=== PATIENT | male | born 1980 | race Caucasian/White ===

== ENCOUNTER 2021-01-15 17:06 | Emergency (ER) | payer MEDICAID ==
[~2021-01-15] VITALS: Ht 210.8 cm; Wt 90.7 kg
[2021-01-15 21:35] VITALS: BP 152/102
[2021-01-15] MEDS ORDERED: KETOROLAC TROMETH 60MG/2ML VIAL IM ONE (22:15)
[2021-01-15] MEDS ORDERED: HYDROcodone-ACET 10/325MG TAB PO ONE (22:15)
== END 2021-01-15 23:10 | disposition home or self-care (01) ==
LOC: ER 17:10
DX: R68.84 Jaw pain (principal); F17.200 Nicotine dependence, unspecified, uncomplicated; Z88.6 Allergy status to analgesic agent
CPT/HCPCS: 70110; 96372; 99283; J1885

== ENCOUNTER 2021-04-29 13:54 | Inpatient (IN) | payer MEDICAID ==
[~2021-04-29] VITALS: Ht 210.8 cm; Wt 92.1 kg
[2021-04-29] MEDS ORDERED: HYDROmorphone HCL 2 MG/ML VL IV ONE (16:15)
[2021-04-29] MEDS ORDERED: ONDANSETRON HCL 4 MG/2 ML VIAL IV ONE (16:15)
[2021-04-29 17:19] LABS: Basophils # (auto) 0 10 ^3/uL (0-0.2); Basophils % (auto) 0.6 % (0.0-2.0); Eosinophils # (auto) 0 10 ^3/uL (0-0.8); Eosinophils % (auto) 0.1 % (0.0-7.0); Hematocrit 43.2 % (41.0-53.0); Hemoglobin 14.6 g/dL (13.5-17.5); Lymphocytes # (auto) 0.9 10 ^3/uL (0.4-5.4); Lymphocytes % (auto) 14.6 % (10.0-50.0); Mean Corpuscular Hemoglobin 30.6 pg (28.0-32.0); Mean Corpuscular Hgb Conc. 33.8 g/dL (32.0-36.0); Mean Corpuscular Volume 90.8 fL (80.0-100.0); Monocytes # (auto) 1.1 10 ^3/uL (0-1.3); Monocytes % (auto) 18.6 % (0.0-12.0); Neutrophils # (auto) 3.9 10 ^3/uL (1.6-8.6); Neutrophils % (auto) 66.1 % (37.0-80.0); Nucleated Red Blood Cells % 0.1 %; Red Blood Cells 4.76 10^6/uL (4.5-5.90); Red Cell Distribution Width 14.9 % (11.8-14.3); White Blood Cell 5.8 10^3/uL (4.4-10.8)
[2021-04-29 17:30] LABS: Albumin 3.4 g/dL (3.4-5.0); BUN/Creatinine Ratio 8.3; Calcium 9.2 mg/dL (8.5-10.1); Magnesium 2.2 mg/dL (1.6-2.6)
[2021-04-29 17:31] LABS: Bilirubin, Total 1.3 mg/dL (0.2-1.0); Total Protein 7.5 g/dL (6.4-8.2)
[2021-04-29 17:36] LABS: INR 0.95 (0.9-1.15); Partial Thromboplastin Time 26.6 sec (23.6-33.0)
[2021-04-29] MEDS ORDERED: MORPHINE SULFATE INJECTION 2 MG/ML SYRG IV PRN ×2 (18:00)
[2021-04-29] MEDS ORDERED: ACETAMINOPHEN 325 MG TAB PO PRN (18:00)
[2021-04-29] MEDS ORDERED: LORazepam 0.5 MG TAB PO PRN (18:00)
[2021-04-29] MEDS ORDERED: ONDANSETRON HCL 4 MG/2 ML VIAL IV PRN (18:00)
[2021-04-29] MEDS ORDERED: DOCUSATE SOD 100 MG CAP PO PRN (18:00)
[2021-04-29] MEDS ORDERED: NITROGLYCERIN 0.4 MG SL TAB SL PRN (18:00)
[2021-04-29] MEDS ORDERED: diphenhdrAMINE HCL 25 MG CAP PO PRN (18:00)
[2021-04-29] MEDS ORDERED: ENOXAPARIN SOD 40 MG/0.4 ML SYRINGE SC SCH (18:28)
[2021-04-29] MEDS ORDERED: DEXTROSE (50%) 50ML SYRG IV PRN (18:45)
[2021-04-29] MEDS: SODIUM CHLORIDE 0.9% 1,000 ML IV SCH (18:56)
[2021-04-29 21:00] VITALS: BP 137/93
[2021-04-29 22:00] VITALS: BP 141/86
[2021-04-29] MEDS: ACCU-CHEK COMFORT CURVE STRIP VI SCH (22:00)
[2021-04-29] MEDS ORDERED: PREGABALIN CAPSULE 75 MG CAP PO SCH (22:00)
[2021-04-30] MEDS: InsuLIN REG 1unit/0.01ml Soln (100units/ml) SC SCH ×5 (00:38→22:47)
[2021-04-30 04:53] VITALS: BP 109/63
[2021-04-30] MEDS ORDERED: GABA-339 PO (05:15)
[2021-04-30] MEDS ORDERED: ETOD400T3 PO (05:23)
[2021-04-30] MEDS ORDERED: OMEP20TA PO (05:27)
[2021-04-30] MEDS ORDERED: HYDR-4833 PO (05:30)
[2021-04-30] MEDS: ACCU-CHEK COMFORT CURVE STRIP VI SCH ×4 (06:33→22:46)
[2021-04-30 08:00] VITALS: BP_SYST 119; BP_DIAS 73; BP_DIAS 76
[2021-04-30] MEDS: HYDROmorphone HCL 2 MG/ML VL IV PRN ×5 (09:47→22:31)
[2021-04-30] MEDS: THIAMINE HCL 100 MG TAB PO SCH (09:48)
[2021-04-30] MEDS: FOLIC ACID 1 MG TAB PO SCH (09:48)
[2021-04-30 09:51] LABS: Basophils # (auto) 0 10 ^3/uL (0-0.2); Basophils % (auto) 0.4 % (0.0-2.0); Eosinophils # (auto) 0 10 ^3/uL (0-0.8); Eosinophils % (auto) 0.6 % (0.0-7.0); Hematocrit 37.7 % (41.0-53.0); Hemoglobin 12.4 g/dL (13.5-17.5); Lymphocytes # (auto) 1.4 10 ^3/uL (0.4-5.4); Lymphocytes % (auto) 31.1 % (10.0-50.0); Mean Corpuscular Hemoglobin 30.3 pg (28.0-32.0); Mean Corpuscular Hgb Conc. 32.8 g/dL (32.0-36.0); Mean Corpuscular Volume 92.4 fL (80.0-100.0); Monocytes # (auto) 0.7 10 ^3/uL (0-1.3); Monocytes % (auto) 15.4 % (0.0-12.0); Neutrophils # (auto) 2.3 10 ^3/uL (1.6-8.6); Neutrophils % (auto) 52.5 % (37.0-80.0); Red Blood Cells 4.08 10^6/uL (4.5-5.90); Red Cell Distribution Width 14.9 % (11.8-14.3); White Blood Cell 4.4 10^3/uL (4.4-10.8)
[2021-04-30] MEDS: SODIUM CHLORIDE 0.9% 1,000 ML IV SCH (09:52)
[2021-04-30 11:34] LABS: Calcium 8.7 mg/dL (8.5-10.1); Potassium 3.9 mmol/L (3.5-5.1)
[2021-04-30 11:38] LABS: Albumin 2.8 g/dL (3.4-5.0); BUN/Creatinine Ratio 7.4
[2021-04-30 11:41] LABS: Bilirubin, Total 1.1 mg/dL (0.2-1.0); Total Protein 6.2 g/dL (6.4-8.2)
[2021-04-30 12:00] VITALS: BP 119/76
[2021-04-30] MEDS: ENOXAPARIN SOD 40 MG/0.4 ML SYRINGE SC SCH (12:11)
[2021-04-30] MEDS: PREGABALIN CAPSULE 75 MG CAP PO SCH ×2 (16:14→23:33)
[2021-04-30 16:17] VITALS: BP 113/78
[2021-04-30 22:00] VITALS: BP 119/76
[2021-05-01] VITALS (7 sets, daily range): BP systolic 111–125; BP diastolic 57–80
[2021-05-01] MEDS: SODIUM CHLORIDE 0.9% 1,000 ML IV SCH ×2 (03:20→20:00)
[2021-05-01] MEDS: InsuLIN REG 1unit/0.01ml Soln (100units/ml) SC SCH ×4 (06:45→22:00)
[2021-05-01] MEDS: ACCU-CHEK COMFORT CURVE STRIP VI SCH ×4 (06:45→22:00)
[2021-05-01] MEDS: PREGABALIN CAPSULE 75 MG CAP PO SCH ×3 (06:57→22:45)
[2021-05-01 07:42] LABS: Basophils # (auto) 0 10 ^3/uL (0-0.2); Basophils % (auto) 0.5 % (0.0-2.0); Eosinophils # (auto) 0 10 ^3/uL (0-0.8); Eosinophils % (auto) 1.1 % (0.0-7.0); Hematocrit 35.4 % (41.0-53.0); Hemoglobin 11.7 g/dL (13.5-17.5); Lymphocytes # (auto) 1.8 10 ^3/uL (0.4-5.4); Lymphocytes % (auto) 41.3 % (10.0-50.0); Mean Corpuscular Hgb Conc. 33.1 g/dL (32.0-36.0); Mean Corpuscular Volume 93.5 fL (80.0-100.0); Monocytes # (auto) 0.5 10 ^3/uL (0-1.3); Monocytes % (auto) 11.3 % (0.0-12.0); Neutrophils % (auto) 45.8 % (37.0-80.0); Nucleated Red Blood Cells % 0.1 %; Red Blood Cells 3.78 10^6/uL (4.5-5.90); Red Cell Distribution Width 14.5 % (11.8-14.3); White Blood Cell 4.4 10^3/uL (4.4-10.8)
[2021-05-01 07:50] LABS: Potassium 3.4 mmol/L (3.5-5.1)
[2021-05-01 08:12] LABS: BUN/Creatinine Ratio 9.4
[2021-05-01 08:13] LABS: Albumin 2.7 g/dL (3.4-5.0); Bilirubin, Total 0.5 mg/dL (0.2-1.0); Calcium 8.3 mg/dL (8.5-10.1)
[2021-05-01] MEDS: THIAMINE HCL 100 MG TAB PO SCH (09:44)
[2021-05-01] MEDS: ENOXAPARIN SOD 40 MG/0.4 ML SYRINGE SC SCH (09:44)
[2021-05-01] MEDS: FOLIC ACID 1 MG TAB PO SCH (09:44)
[2021-05-02 05:00] VITALS: BP 106/60
[2021-05-02] MEDS: PREGABALIN CAPSULE 75 MG CAP PO SCH ×3 (06:20→22:07)
[2021-05-02] MEDS: HYDROcodone-ACET 5/325MG TAB PO PRN ×4 (06:41→23:16)
[2021-05-02] MEDS: InsuLIN REG 1unit/0.01ml Soln (100units/ml) SC SCH ×4 (06:42→23:17)
[2021-05-02] MEDS: ACCU-CHEK COMFORT CURVE STRIP VI SCH ×3 (06:42→22:00)
[2021-05-02 09:00] VITALS: BP 116/71
[2021-05-02] MEDS: ENOXAPARIN SOD 40 MG/0.4 ML SYRINGE SC SCH (09:20)
[2021-05-02] MEDS: THIAMINE HCL 100 MG TAB PO SCH (09:25)
[2021-05-02] MEDS: FOLIC ACID 1 MG TAB PO SCH (09:25)
[2021-05-02] MEDS: SODIUM CHLORIDE 0.9% 1,000 ML IV SCH (12:40)
[2021-05-02 13:00] VITALS: BP 129/74
[2021-05-02 17:00] VITALS: BP 115/82
[2021-05-03 05:00] VITALS: BP 110/77
[2021-05-03] MEDS: SODIUM CHLORIDE 0.9% 1,000 ML IV SCH ×2 (05:20→21:25)
[2021-05-03] MEDS: ACCU-CHEK COMFORT CURVE STRIP VI SCH ×4 (06:03→21:26)
[2021-05-03] MEDS: PREGABALIN CAPSULE 75 MG CAP PO SCH ×3 (06:04→21:25)
[2021-05-03] MEDS: InsuLIN REG 1unit/0.01ml Soln (100units/ml) SC SCH ×4 (06:04→21:26)
[2021-05-03] MEDS: HYDROcodone-ACET 5/325MG TAB PO PRN ×4 (06:11→21:26)
[2021-05-03 09:00] VITALS: BP 122/80
[2021-05-03] MEDS: THIAMINE HCL 100 MG TAB PO SCH (10:43)
[2021-05-03] MEDS: FOLIC ACID 1 MG TAB PO SCH (10:43)
[2021-05-03] MEDS: ENOXAPARIN SOD 40 MG/0.4 ML SYRINGE SC SCH (10:44)
[2021-05-03 13:00] VITALS: BP 124/80
[2021-05-03 17:00] VITALS: BP 119/67
[2021-05-03 22:00] VITALS: BP 133/91
[2021-05-04 05:00] VITALS: BP 117/74
[2021-05-04] MEDS: ACCU-CHEK COMFORT CURVE STRIP VI SCH ×2 (05:38→11:30)
[2021-05-04] MEDS: InsuLIN REG 1unit/0.01ml Soln (100units/ml) SC SCH ×2 (05:38→11:30)
[2021-05-04 09:00] VITALS: BP 126/81
[2021-05-04] MEDS: ENOXAPARIN SOD 40 MG/0.4 ML SYRINGE SC SCH (09:53)
[2021-05-04] MEDS: FOLIC ACID 1 MG TAB PO SCH (09:56)
[2021-05-04] MEDS: THIAMINE HCL 100 MG TAB PO SCH (09:56)
[2021-05-04] MEDS: HYDROcodone-ACET 5/325MG TAB PO PRN ×2 (09:56→14:52)
[2021-05-04 13:00] VITALS: BP 122/75
[2021-05-04] MEDS: PREGABALIN CAPSULE 75 MG CAP PO SCH (14:00)
[2021-05-04] MEDS: SODIUM CHLORIDE 0.9% 1,000 ML IV SCH (14:53)
[2021-05-04 17:00] VITALS: BP 123/83
== END 2021-05-04 17:00 | DRG 340 ==
LOC: ER 13:54 → EDUNIT# 13:54 → EDBD 13:54 → OVERFLOW 18:20 → WEST WING 20:30
PROVIDERS: ADMIT Family Medicine; ATTEND Family Medicine
DX: S72.111A Displaced fracture of greater trochanter of right femur, initial encounter for closed fracture (principal); F17.210 Nicotine dependence, cigarettes, uncomplicated; G89.29 Other chronic pain; K21.9 Gastro-esophageal reflux disease without esophagitis; R73.9 Hyperglycemia, unspecified; Z20.822 Contact with and (suspected) exposure to COVID-19; W01.0XXA Fall on same level from slipping, tripping and stumbling without subsequent striking against object, initial encounter; Z98.1 Arthrodesis status; Z88.1 Allergy status to other antibiotic agents; Z88.5 Allergy status to narcotic agent; Y93.89 Activity, other specified; Y92.89 Other specified places as the place of occurrence of the external cause; Y99.8 Other external cause status
CPT/HCPCS: 36415; 71045; 73502; 73700; 80053; 80320; 82962; 83036; 83735; 85025; 85610; 85730; 87426; 93005; 96372; 96374; 96375; 97110; 97116; 97163; 97530; G0378; J2405

== ENCOUNTER 2022-09-01 19:38 | Inpatient (IN) | payer MEDICAID ==
[~2022-09-01] VITALS: Ht 210.8 cm; Wt 91.5 kg
[~2022-09-01 19:38] MED LIST: ETOD400T3 PO; GABA-339 PO; HYDR-4833 PO; OMEP20TA PO
[2022-09-01] MEDS ORDERED: MORPHINE SULFATE 4 MG/ML SYR/VIAL IV ONE (20:15)
[2022-09-01] MEDS ORDERED: SODIUM CHLORIDE 0.9% 1,000 ML IVB ONE ×2 (20:15→23:00)
[2022-09-01] MEDS ORDERED: PROCHLORPERAZINE EDISYLATE 5 MG/ML 2ML VIAL IV ONE (20:15)
[2022-09-01] MEDS ORDERED: PANTOPRAZOLE 40 MG/10 ML VIAL INJ IV ONE ×2 (20:15→23:00)
[2022-09-01 21:20] LABS: Albumin 3.5 g/dL (3.4-5.0); Basophils # (auto) 0 10 ^3/uL (0-0.2); Basophils % (auto) 0.6 % (0.0-2.0); Calcium 9.4 mg/dL (8.5-10.1); Eosinophils # (auto) 0 10 ^3/uL (0-0.8); Eosinophils % (auto) 0.1 % (0.0-7.0); Hematocrit 47.7 % (41.0-53.0); Hemoglobin 16.4 g/dL (13.5-17.5); Lymphocytes # (auto) 1.9 10 ^3/uL (0.4-5.4); Lymphocytes % (auto) 21.9 % (10.0-50.0); Mean Corpuscular Hemoglobin 29.9 pg (28.0-32.0); Mean Corpuscular Hgb Conc. 34.3 g/dL (32.0-36.0); Mean Corpuscular Volume 87.2 fL (80.0-100.0); Monocytes # (auto) 1.1 10 ^3/uL (0-1.3); Monocytes % (auto) 12.4 % (0.0-12.0); Neutrophils # (auto) 5.5 10 ^3/uL (1.6-8.6); Nucleated Red Blood Cells % 0.6 %; Potassium 3.9 mmol/L (3.5-5.1); Red Blood Cells 5.46 10^6/uL (4.5-5.90); Red Cell Distribution Width 16.9 % (11.8-14.3); White Blood Cell 8.5 10^3/uL (4.4-10.8)
[2022-09-01 21:25] LABS: BUN/Creatinine Ratio 3.6 (10.0-20.0); Bilirubin, Total 0.6 mg/dL (0.2-1.0); Total Protein 8.3 g/dL (6.4-8.2)
[2022-09-01] MEDS ORDERED: MORPHINE SULFATE INJ 2 MG/ml SYRG IV PRN (23:00)
[2022-09-01] MEDS ORDERED: FOLIC ACID 1 MG TAB PO ONE (23:00)
[2022-09-01] MEDS ORDERED: chlordiazePOXIDE HCL 25 MG CAP PO ONE (23:00)
[2022-09-01] MEDS ORDERED: LORazepam 2MG/ML-1ML VIAL IV PRN (23:00)
[2022-09-01] MEDS ORDERED: MULTIPLE VITAMIN TAB PO ONE (23:00)
[2022-09-01] MEDS ORDERED: THIAMINE 100mg/ml INJ (200mg/2ml VIAL) IV ONE (23:00)
[2022-09-01] MEDS ORDERED: NITROGLYCERIN 0.4 MG SL TAB SL PRN (23:00)
[2022-09-01] MEDS: SODIUM CHLORIDE 0.9% 1,000 ML IV SCH (23:28)
[2022-09-02 05:21] VITALS: BP 127/68
[2022-09-02 08:36] VITALS: BP 117/78
[2022-09-02 08:37] LABS: Basophils # (auto) 0.1 10 ^3/uL (0-0.2); Eosinophils # (auto) 0 10 ^3/uL (0-0.8); Eosinophils % (auto) 0.4 % (0.0-7.0); Hematocrit 40.7 % (41.0-53.0); Hemoglobin 13.6 g/dL (13.5-17.5); Lymphocytes # (auto) 1.9 10 ^3/uL (0.4-5.4); Lymphocytes % (auto) 30.5 % (10.0-50.0); Mean Corpuscular Hemoglobin 29.7 pg (28.0-32.0); Mean Corpuscular Hgb Conc. 33.4 g/dL (32.0-36.0); Mean Corpuscular Volume 88.9 fL (80.0-100.0); Monocytes # (auto) 0.7 10 ^3/uL (0-1.3); Monocytes % (auto) 11.4 % (0.0-12.0); Neutrophils # (auto) 3.6 10 ^3/uL (1.6-8.6); Neutrophils % (auto) 56.7 % (37.0-80.0); Nucleated Red Blood Cells % 0.1 %; Red Blood Cells 4.58 10^6/uL (4.5-5.90); Red Cell Distribution Width 17.1 % (11.8-14.3); White Blood Cell 6.3 10^3/uL (4.4-10.8)
[2022-09-02 08:55] LABS: Albumin 2.7 g/dL (3.4-5.0); Calcium 8.6 mg/dL (8.5-10.1); Potassium 4.2 mmol/L (3.5-5.1)
[2022-09-02 08:59] LABS: BUN/Creatinine Ratio 5.2 (10.0-20.0); Bilirubin, Total 0.8 mg/dL (0.2-1.0)
[2022-09-02] MEDS ORDERED: PANTOPRAZOLE 40 MG/10 ML VIAL INJ IV SCH (10:00)
[2022-09-02] MEDS: MULTIPLE VITAMIN TAB PO SCH (10:38)
[2022-09-02] MEDS: ENOXAPARIN SOD 40 MG/0.4 ML SYRINGE SC SCH (10:38)
[2022-09-02] MEDS: FOLIC ACID 1 MG TAB PO SCH (10:38)
[2022-09-02] MEDS: THIAMINE HCL 100 MG TAB PO SCH (11:25)
[2022-09-02] MEDS: SODIUM CHLORIDE 0.9% 1,000 ML IV SCH ×3 (12:00→20:18)
[2022-09-02 12:50] VITALS: BP 121/79
[2022-09-02] MEDS ORDERED: GABAPENTIN 400 MG CAP PO SCH (14:00)
[2022-09-02 16:36] VITALS: BP 123/82
[2022-09-02 22:00] VITALS: BP 139/79
[2022-09-03 05:00] VITALS: BP 119/80
[2022-09-03] MEDS: SODIUM CHLORIDE 0.9% 1,000 ML IV SCH ×2 (07:18→18:21)
[2022-09-03 09:00] VITALS: BP 120/83
[2022-09-03] MEDS ORDERED: CLINIMIX PER PHARMACY 0 ML IV SCH (11:15)
[2022-09-03 12:16] LABS: BUN/Creatinine Ratio 6.8 (10.0-20.0); Calcium 8.7 mg/dL (8.5-10.1); Magnesium 2.3 mg/dL (1.6-2.6); Phosphorus 3.1 mg/dL (2.5-4.90); Potassium 3.8 mmol/L (3.5-5.1)
[2022-09-03] MEDS: MULTIPLE VITAMIN TAB PO SCH (12:33)
[2022-09-03] MEDS: THIAMINE HCL 100 MG TAB PO SCH (12:33)
[2022-09-03] MEDS: FOLIC ACID 1 MG TAB PO SCH (12:33)
[2022-09-03] MEDS: ENOXAPARIN SOD 40 MG/0.4 ML SYRINGE SC SCH (12:34)
[2022-09-03] MEDS: SUCRALFATE 1 GM/10 ML ORAL SUSP PO SCH ×3 (12:34→21:27)
[2022-09-03 13:00] VITALS: BP 124/82
[2022-09-03 20:00] VITALS: BP 121/85
[2022-09-03] MEDS ORDERED: DEXTROSE (50%) 50ML SYRG IV SCH (20:00)
[2022-09-03] MEDS: AMINO ACID INFUSION IN D10W 1,000 ML IV NR (20:10)
[2022-09-03] MEDS: PANTOPRAZOLE 40 MG/10 ML VIAL INJ IV SCH (21:27)
[2022-09-03 22:00] VITALS: BP 121/85
[2022-09-04] MEDS: ACCU-CHEK COMFORT CURVE STRIP VI SCH ×4 (00:21→17:53)
[2022-09-04 05:00] VITALS: BP 112/69
[2022-09-04] MEDS: InsuLIN REG 1unit/0.01ml Soln (100units/ml) SC SCH ×4 (05:35→17:53)
[2022-09-04 05:41] LABS: Calcium 8.9 mg/dL (8.5-10.1); Potassium 4.2 mmol/L (3.5-5.1)
[2022-09-04 05:44] LABS: Albumin 2.8 g/dL (3.4-5.0); Magnesium 2.3 mg/dL (1.6-2.6)
[2022-09-04 05:46] LABS: Bilirubin, Total 1.1 mg/dL (0.2-1.0); Phosphorus 3.7 mg/dL (2.5-4.90); Total Protein 6.4 g/dL (6.4-8.2)
[2022-09-04] MEDS: SUCRALFATE 1 GM/10 ML ORAL SUSP PO SCH ×4 (06:39→22:39)
[2022-09-04] MEDS: SODIUM CHLORIDE 0.9% 1,000 ML IV SCH (06:54)
[2022-09-04 09:00] VITALS: BP 130/89
[2022-09-04] MEDS: MULTIPLE VITAMIN TAB PO SCH (10:44)
[2022-09-04] MEDS: FOLIC ACID 1 MG TAB PO SCH (10:45)
[2022-09-04] MEDS: THIAMINE HCL 100 MG TAB PO SCH (10:45)
[2022-09-04] MEDS: PANTOPRAZOLE 40 MG/10 ML VIAL INJ IV SCH ×2 (10:46→22:39)
[2022-09-04] MEDS: ENOXAPARIN SOD 40 MG/0.4 ML SYRINGE SC SCH (10:46)
[2022-09-04] MEDS: D5W/SOD CHLO 0.9% 1,000 ML IV SCH ×3 (10:52→23:50)
[2022-09-04 12:55] LABS: Hepatitis C Antibody Negative (Negative)
[2022-09-04 13:00] VITALS: BP 107/77
[2022-09-04 17:00] VITALS: BP 115/88
[2022-09-04] MEDS: AMINO ACID INFUSION IN D10W 1,000 ML IV NR (20:25)
[2022-09-04 22:00] VITALS: BP 132/87
[2022-09-05] MEDS: D5W/SOD CHLO 0.9% 1,000 ML IV SCH ×3 (04:39→19:50)
[2022-09-05 05:00] VITALS: BP 124/77
[2022-09-05] MEDS: ACCU-CHEK COMFORT CURVE STRIP VI SCH ×5 (05:36→23:51)
[2022-09-05] MEDS: InsuLIN REG 1unit/0.01ml Soln (100units/ml) SC SCH ×5 (05:36→23:51)
[2022-09-05] MEDS: SUCRALFATE 1 GM/10 ML ORAL SUSP PO SCH ×4 (06:13→21:07)
[2022-09-05 06:30] LABS: Albumin 2.8 g/dL (3.4-5.0); Calcium 8.7 mg/dL (8.5-10.1); Potassium 3.4 mmol/L (3.5-5.1)
[2022-09-05 06:37] LABS: BUN/Creatinine Ratio 9.5 (10.0-20.0); Bilirubin, Total 1.1 mg/dL (0.2-1.0); Phosphorus 2.9 mg/dL (2.5-4.90); Total Protein 6.5 g/dL (6.4-8.2)
[2022-09-05 09:00] VITALS: BP 100/70
[2022-09-05] MEDS: PANTOPRAZOLE 40 MG/10 ML VIAL INJ IV SCH ×2 (10:50→21:07)
[2022-09-05] MEDS: ENOXAPARIN SOD 40 MG/0.4 ML SYRINGE SC SCH (10:50)
[2022-09-05] MEDS: THIAMINE HCL 100 MG TAB PO SCH (10:51)
[2022-09-05] MEDS: MULTIPLE VITAMIN TAB PO SCH (10:51)
[2022-09-05] MEDS: FOLIC ACID 1 MG TAB PO SCH (10:51)
[2022-09-05 13:00] VITALS: BP 121/83
[2022-09-05 17:00] VITALS: BP 114/80
[2022-09-05] MEDS: AMINO ACID INFUSION IN D10W 1,000 ML IV NR (21:08)
[2022-09-05 22:00] VITALS: BP 127/88
[2022-09-06] MEDS: D5W/SOD CHLO 0.9% 1,000 ML IV SCH ×4 (02:30→22:45)
[2022-09-06 05:00] VITALS: BP 119/72
[2022-09-06 05:52] LABS: Potassium 3.1 mmol/L (3.5-5.1)
[2022-09-06] MEDS: ACCU-CHEK COMFORT CURVE STRIP VI SCH ×3 (05:54→18:14)
[2022-09-06] MEDS: InsuLIN REG 1unit/0.01ml Soln (100units/ml) SC SCH ×3 (05:55→18:00)
[2022-09-06 05:58] LABS: Albumin 3.1 g/dL (3.4-5.0); BUN/Creatinine Ratio 9.5 (10.0-20.0); Bilirubin, Total 1.3 mg/dL (0.2-1.0); Calcium 9.2 mg/dL (8.5-10.1); Phosphorus 2.9 mg/dL (2.5-4.90)
[2022-09-06] MEDS: SUCRALFATE 1 GM/10 ML ORAL SUSP PO SCH ×4 (06:26→22:45)
[2022-09-06 08:00] VITALS: BP 125/55
[2022-09-06 09:00] VITALS: BP 125/55
[2022-09-06] MEDS: FOLIC ACID 1 MG TAB PO SCH (09:50)
[2022-09-06] MEDS: MULTIPLE VITAMIN TAB PO SCH (09:50)
[2022-09-06] MEDS: THIAMINE HCL 100 MG TAB PO SCH (09:50)
[2022-09-06] MEDS: PANTOPRAZOLE 40 MG/10 ML VIAL INJ IV SCH ×2 (09:50→22:45)
[2022-09-06] MEDS: ENOXAPARIN SOD 40 MG/0.4 ML SYRINGE SC SCH (09:51)
[2022-09-06] MEDS: POTASSIUM CHL 20 Meq TABLET PO SCH ×2 (12:14→17:04)
[2022-09-06 13:00] VITALS: BP 126/77
[2022-09-06 17:00] VITALS: BP 139/78
[2022-09-06] MEDS: AMINO ACID INFUSION IN D10W 1,000 ML IV NR (19:27)
[2022-09-06 22:00] VITALS: BP 138/86
[2022-09-07 05:00] VITALS: BP 127/74
[2022-09-07] MEDS: ACCU-CHEK COMFORT CURVE STRIP VI SCH ×2 (06:00)
[2022-09-07] MEDS: InsuLIN REG 1unit/0.01ml Soln (100units/ml) SC SCH ×2 (06:00)
[2022-09-07 06:21] LABS: Hematocrit 39.2 % (41.0-53.0); Hemoglobin 13.1 g/dL (13.5-17.5); Mean Corpuscular Hgb Conc. 33.3 g/dL (32.0-36.0); Mean Corpuscular Volume 90.2 fL (80.0-100.0); Red Blood Cells 4.35 10^6/uL (4.5-5.90); Red Cell Distribution Width 17.5 % (11.8-14.3); White Blood Cell 8.1 10^3/uL (4.4-10.8)
[2022-09-07 06:26] LABS: Basophils % (manual) 0 (0.0-2.0); Blast Cells 0; Metamyelocytes % 0; Myelocytes % 0; Promyelocytes % 0; Reactive Lymphocytes 0
[2022-09-07 06:34] LABS: Albumin 2.9 g/dL (3.4-5.0); Calcium 8.9 mg/dL (8.5-10.1); Magnesium 1.8 mg/dL (1.6-2.6); Potassium 3.5 mmol/L (3.5-5.1)
[2022-09-07] MEDS: SUCRALFATE 1 GM/10 ML ORAL SUSP PO SCH ×4 (06:36→22:51)
[2022-09-07 06:40] LABS: BUN/Creatinine Ratio 5.9 (10.0-20.0); Bilirubin, Total 1.1 mg/dL (0.2-1.0); Phosphorus 2.6 mg/dL (2.5-4.90); Total Protein 6.6 g/dL (6.4-8.2)
[2022-09-07 08:00] VITALS: BP 117/61
[2022-09-07 08:35] LABS: Band Neutrophils % (manual) 2; Eosinophils % (manual) 2 (0-7); Lymphocytes % (manual) 34 (10.0-50.0); Monocytes % (manual) 9 (0-12)
[2022-09-07 09:00] VITALS: BP 117/61
[2022-09-07] MEDS: PANTOPRAZOLE 40 MG/10 ML VIAL INJ IV SCH ×2 (10:14→22:51)
[2022-09-07] MEDS: ENOXAPARIN SOD 40 MG/0.4 ML SYRINGE SC SCH (10:14)
[2022-09-07] MEDS: FOLIC ACID 1 MG TAB PO SCH (10:14)
[2022-09-07] MEDS: MULTIPLE VITAMIN TAB PO SCH (10:14)
[2022-09-07] MEDS: THIAMINE HCL 100 MG TAB PO SCH (10:14)
[2022-09-07 13:00] VITALS: BP 133/83
[2022-09-07] MEDS: D5W/SOD CHLO 0.9% 1,000 ML IV SCH ×2 (14:56→18:18)
[2022-09-07 17:00] VITALS: BP 139/82
[2022-09-07] MEDS: ACETAMINOPHEN 325 MG TAB PO PRN (18:30)
[2022-09-07 22:00] VITALS: BP 132/78
[2022-09-08] MEDS: D5W/SOD CHLO 0.9% 1,000 ML IV SCH ×2 (03:00→07:50)
[2022-09-08 05:00] VITALS: BP 119/80
[2022-09-08] MEDS: SUCRALFATE 1 GM/10 ML ORAL SUSP PO SCH ×2 (06:15→11:24)
[2022-09-08 08:00] VITALS: BP 141/85
[2022-09-08 09:00] VITALS: BP 151/86
[2022-09-08] MEDS: PANTOPRAZOLE 40 MG/10 ML VIAL INJ IV SCH (09:19)
[2022-09-08] MEDS: FOLIC ACID 1 MG TAB PO SCH (09:20)
[2022-09-08] MEDS: THIAMINE HCL 100 MG TAB PO SCH (09:20)
[2022-09-08] MEDS: ENOXAPARIN SOD 40 MG/0.4 ML SYRINGE SC SCH (09:20)
[2022-09-08] MEDS: MULTIPLE VITAMIN TAB PO SCH (09:20)
[2022-09-08] MEDS: ACETAMINOPHEN 325 MG TAB PO PRN (09:21)
[2022-09-08] MEDS ORDERED: PANT40T PO (10:38)
[2022-09-08] MEDS ORDERED: MULT1TAB95 PO (10:38)
[2022-09-08] MEDS ORDERED: THIA100T5 PO (10:38)
[2022-09-08] MEDS ORDERED: FOLI1TAB6 PO (10:38)
[2022-09-08] MEDS ORDERED: SUCR1TAB PO (10:38)
[2022-09-08 11:11] VITALS: BP 141/85
[2022-09-08 11:15] VITALS: BP 141/85
== END 2022-09-08 12:05 | disposition home or self-care (01) | DRG 282 ==
LOC: ER 19:38 → TELE 22:56 → TELE-EAST 09-02 04:40
PROVIDERS: ADMIT Nurse Practitioner Family; ATTEND Family Medicine
DX: K85.20 Alcohol induced acute pancreatitis without necrosis or infection (principal); K80.00 Calculus of gallbladder with acute cholecystitis without obstruction; E87.1 Hypo-osmolality and hyponatremia; K26.9 Duodenal ulcer, unspecified as acute or chronic, without hemorrhage or perforation; F10.229 Alcohol dependence with intoxication, unspecified; F17.210 Nicotine dependence, cigarettes, uncomplicated; K21.00 Gastro-esophageal reflux disease with esophagitis, without bleeding; K29.80 Duodenitis without bleeding; R74.8 Abnormal levels of other serum enzymes; R79.89 Other specified abnormal findings of blood chemistry; G89.4 Chronic pain syndrome; Z87.11 Personal history of peptic ulcer disease; Z87.19 Personal history of other diseases of the digestive system; Z88.5 Allergy status to narcotic agent; Z71.41 Alcohol abuse counseling and surveillance of alcoholic; Z71.6 Tobacco abuse counseling
CPT/HCPCS: 36415; 74176; 74181; 76705; 80048; 80053; 80320; 82150; 82962; 83690; 83735; 84100; 85007; 85025; 85027; 86803; 87340; 96374; 96375; C9113; G0378; J1815; J7042